=== PATIENT | male | born 1960 | race Caucasian/White ===

== ENCOUNTER 2018-06-01 22:07 | Emergency (ER) | payer BC, MEDICARE ==
[~2018-06-01] VITALS: Ht 182.9 cm; Wt 83.0 kg
[~2018-06-01 22:07] MED LIST: ALPR0.5T PO; DARU600T2 PO; POTA20PA34 PO; RALT400T PO; RITO100T PO; VALA500T PO; WARF7.5T49 PO
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
[2018-06-01] MEDS ORDERED: ONDANSETRON HCL/PF 4 MG/2 ML VIAL ONE (23:19)
[2018-06-01] MEDS ORDERED: IV NS 0.9% 1,000 ML BAG IV ONE (23:30)
[2018-06-01] MEDS ORDERED: ONDANSETRON HCL/PF - ER 4 MG/2 ML VIAL IV ONE (23:30)
[2018-06-01 23:49] LABS: BASOPHILS % (AUTO) 0.5 % (0.0-2.0); HEMATOCRIT 23 % (39-51); HEMOGLOBIN 7.9 g/dL (13.5-17.5); LYMPHOCYTES # (AUTO) 1.4 /CMM (0.8-4.8); LYMPHOCYTES % (AUTO) 20.9 % (20.0-44.0); MEAN CORPUSCULAR HEMOGLOBIN 34 PG (26.0-33.0); MEAN CORPUSCULAR HGB CONC 34 g/dl (31.0-36.0); MEAN CORPUSCULAR VOLUME 100 fL (80-96); MONOCYTES # (AUTO) 0.8 /CMM (0.1-1.30); MONOCYTES % (AUTO) 11.3 % (2.0-12.0); NEUTROPHILS # (AUTO) 4.4 /CMM (1.8-8.9); NEUTROPHILS % (AUTO) 66.3 % (43.0-81.0); PLATELET COUNT (AUTO) 285 /CMM (150-450); RDW COEFFICIENT OF VARIATION 13.1 (11.5-15.0); RED BLOOD CELL COUNT(AUTO) 2.34 MIL/uL (4.5-6.0); WHITE BLOOD COUNT (AUTO) 6.7 K/uL (4.3-11.0)
--- NOTE | 2018-06-02 00:16 | NUR ---
PT HAS SPOKEN WITH ER MD FRANCIS AND CAME TO CONLUSION THAT THIS PATIENT WOULD LEAVE AMA SINCE THEY DO NOT WANT TO PROCEED WITH MD FRANCIS RECOMMENDATIONS. PT D/C'D WITH STEADY GAIT AND STABLE VS
[2018-06-02 00:18] VITALS: BP 110/65
== END 2018-06-02 00:19 | disposition left against medical advice (07) ==
LOC: ER 22:08
DX: S09.8XXA Other specified injuries of head, initial encounter (principal); D68.32 Hemorrhagic disorder due to extrinsic circulating anticoagulants; R55 Syncope and collapse; Z41.1 Encounter for cosmetic surgery; Z88.1 Allergy status to other antibiotic agents; Z79.01 Long term (current) use of anticoagulants; Z87.828 Personal history of other (healed) physical injury and trauma; W26.0XXA Contact with knife, initial encounter; Y93.89 Activity, other specified; Y92.89 Other specified places as the place of occurrence of the external cause; Y99.8 Other external cause status
CPT/HCPCS: 36415; 85025; 85610; 93005; 96361; 96374; 99285; A4606; A6402; J2405; J7030; Z7610